=== PATIENT | male | born 1995 | race American Indian/Alaskan Native ===

== ENCOUNTER 2018-06-01 19:53 | Emergency (ER) | payer MEDICAID ==
[2018-06-01] MEDS ORDERED: Sodium Chloride 0.9% 10 ML Syringe FLUSH PRN (20:17)
[2018-06-01] MEDS ORDERED: Ketorolac 30 MG/ML SDV IVPUSH ONE (20:17)
--- NOTE | 2018-06-01 20:23 | EDM.PDOC ---
ED HPI GENERAL MEDICAL PROBLEM - General Chief Complaint: Behavioral/Psych Stated Complaint: PANIC ATTACK Time Seen by Provider: 06/01/18 20:10 Source of Information: Reports: Patient, RN History Limitations: Reports: Other (lack of old records) - History of Present Illness INITIAL COMMENTS - FREE TEXT/NARRATIVE: 23 yo male was sent from [facility] for a complaint of SOB and pleuritic L chest pain. He was given diazepam there without benefit. He denies calf pain or fever or injury to this area. He states he was hospitalized in [place] for this a month ago and does not recall what they diagnosed him with. [facility] staff felt he was having a panic attack. Police brought him to the ER after he punched a hole in the wall at [facility]. At [facility] for methamphetamine abuse. Also uses marijuana. Onset: Today Onset Date: 06/01/18 Duration: Minutes: Location: Reports: Chest (left) Quality: Reports: Sharp Severity: Moderate Improves with: Reports: None Worsens with: Reports: Other (deep breathing) Context: Reports: Other (See HPI) Associated Symptoms: Reports: Shortness of Breath (subjective) Treatments DIGITAL [employer] REPORTER: Reports: Other (see below) (Diazepam) Chest Pain Score (Numeric/FACES): 5 - Related Data Allergies Allergy/AdvReac Type Severity Reaction Status Date / Time amoxicillin Allergy Hives Verified 06/01/18 20:20 Home Meds: Home Meds Benztropine [Cogentin] 0.5 mg PO BID 06/01/18 [History] Haloperidol 20 mg PO BEDTIME 06/01/18 [History] OLANZapine 20 mg PO BEDTIME 06/01/18 [History] Past Medical History - Past Health History Medical/Surgical History: Denies Medical/Surgical History Psychiatric History: Reports: Addiction, Anxiety Social & Family History - Tobacco Use Smoking Status *Q: Current Every Day Smoker Years of Tobacco use: 5 Packs/Tins Daily: 1 - Caffeine Use Caffeine Use: Reports: None - Recreational Drug Use Recreational Drug Use: Yes Drug Use in Last 12 Months: Yes Recreational Drug Type: Reports: Methamphetamine Recreational Drug Use Frequency: Socially ED ROS GENERAL - Review of Systems Review Of Systems: See Below Constitutional: Reports: No Symptoms HEENT: Reports: No Symptoms Respiratory: Reports: Shortness of Breath, Pleuritic Chest Pain Cardiovascular: Reports: Chest Pain (left) Endocrine: Reports: No Symptoms GI/Abdominal: Reports: No Symptoms : Reports: No Symptoms Musculoskeletal: Reports: No Symptoms Skin: Reports: No Symptoms Neurological: Reports: No Symptoms Psychiatric: Reports: Anxiety ED EXAM, GENERAL - Physical Exam Exam: See Below Exam Limited By: No Limitations General Appearance: Alert, WD/WN, No Apparent Distress Eye Exam: Bilateral Eye: Normal Inspection Ears: Normal External Exam, Normal Canal, Hearing Grossly Normal, Normal TMs Ear Exam: Bilateral Ear: Auricle Normal, Canal Normal, TM normal Nose: Normal Inspection, Normal Mucosa, No Blood Throat/Mouth: Normal Inspection, Normal Lips, Normal Oropharynx, Normal Voice, No Airway Compromise Head: Atraumatic, Normocephalic Neck: Normal Inspection Respiratory/Chest: No Respiratory Distress, Lungs Clear, Normal Breath Sounds, No Accessory Muscle Use Cardiovascular: Regular Rate, Rhythm, No Edema, Other (no calf pain) GI/Abdominal: Normal Bowel Sounds, Soft, Non-Tender, No Distention Back Exam: Normal Inspection Extremities: Normal Inspection, Normal Range of Motion, Non-Tender, No Pedal Edema. No: Pedal Edema, Fatou's Sign, Leg Pain, Increased Warmth Neurological: Alert, Oriented, CN II-XII Intact, Normal Cognition, No Motor/ Sensory Deficits Psychiatric: Normal Affect, Normal Mood Skin Exam: Warm, Dry, Intact, Normal Color, No Rash Lymphatic: No Adenopathy Course - Vital Signs Last Recorded V/S: Last Vital Signs Temp 35.3 C 06/01/18 20:41 Pulse 86 06/01/18 20:41 Resp 16 06/01/18 20:06 BP 141/84 H 06/01/18 20:41 Pulse Ox 95 06/01/18 20:41 - Orders/Labs/Meds Orders: Active Orders 24 hr Category Date Time Status Acetaminophen [Tylenol Extra Strength] Med 06/01/18 21:11 Once 1,000 mg PO ONETIME ONE Sodium Chloride 0.9% [Saline Flush] Med 06/01/18 20:17 Active 10 ml FLUSH ASDIRECTED PRN Saline Lock Insert [OM.PC] Routine Oth 06/01/18 20:17 Ordered Medication Orders Sodium Chloride (Saline Flush) 10 ml FLUSH ASDIRECTED PRN PRN Reason: Keep Vein Open Last Admin: 06/01/18 20:34 Dose: 10 ml Meds: Medications Generic Name Dose Route Start Last Admin Trade Name Medardoq PRN Reason Stop Dose Admin Sodium Chloride 10 ml 06/01/18 20:17 06/01/18 20:34 Saline Flush FLUSH 10 ml ASDIRECTED PRN Administration Keep Vein Open Discontinued Medications Generic Name Dose Route Start Last Admin Trade Name Dru PRN Reason Stop Dose Admin Ketorolac Tromethamine 30 mg 06/01/18 20:17 06/01/18 20:36 Toradol IVPUSH 06/01/18 20:18 30 mg ONETIME ONE Administration - Radiology Interpretation Free Text/Narrative:: CXR-neg Departure - Departure Time of Disposition: 21:25 Disposition: Home, Self-Care 01 Condition: Good Clinical Impression: Pleurisy Instructions: Pleurisy, [id number] Referrals: PCP,None [Primary Care Provider] - Forms: ED Department Discharge Additional Instructions: No smoking of any substance. Take ibuprofen 600 mg every 6 hrs with food +/- acetaminophen 1000 mg every 6 hrs. Recheck with your provider as needed. - My Orders Last 24 Hours: My Active Orders 06/01/18 20:17 Sodium Chloride 0.9% [Saline Flush] 10 ml FLUSH ASDIRECTED PRN Saline Lock Insert [OM.PC] Routine 06/01/18 21:11 Acetaminophen [Tylenol Extra Strength] 1,000 mg PO ONETIME ONE - Assessment/Plan Last 24 Hours: My Active Orders 06/01/18 20:17 Sodium Chloride 0.9% [Saline Flush] 10 ml FLUSH ASDIRECTED PRN Saline Lock Insert [OM.PC] Routine 06/01/18 21:11 Acetaminophen [Tylenol Extra Strength] 1,000 mg PO ONETIME ONE
--- NOTE | 2018-06-01 21:10 | CRLCR ---
Indication: Left-sided pleuritic chest pain. Technique: Chest 2 views Comparison: None Findings: Cardiovascular and mediastinum: Heart size and vasculature are normal in caliber and appearance. Lungs and pleural spaces: Lungs are clear. No sign of infiltrate or mass. No sign of pleural effusion. No pneumothorax. Bones and soft tissues: No significant findings. Impression: Unremarkable chest. No finding to explain left-sided pain. Dictated by Sivakumar Lafleur MD @ 06/01/2018 9:07:40 PM Dictated by: Sivakumar Lafleur MD @ 06/01/2018 21:07:50 (Electronically Signed)
[2018-06-01] MEDS ORDERED: Acetaminophen 500 MG Tab PO ONE (21:11)
== END 2018-06-01 21:20 | disposition home or self-care (01) ==
LOC: JP.ED 19:53
DX: R09.1 Pleurisy (principal); F17.210 Nicotine dependence, cigarettes, uncomplicated; Z88.1 Allergy status to other antibiotic agents; Z79.899 Other long term (current) drug therapy
CPT/HCPCS: 71046; 96374; 99284; A9270; J1885